=== PATIENT | female | born 1990 | race Caucasian/White ===

== ENCOUNTER 2017-08-29 10:00 | Emergency (ER) | payer OTHER ==
[~2017-08-29] VITALS: Ht 170.2 cm; Wt 116.0 kg
[~2017-08-29 10:00] MED LIST: BENZ100 PO; Z.0.NO CURRENT MEDS; ZITH250T PO
[2017-08-29 10:03] VITALS: BP 146/91; PULSE 100; RESP 20; TEMP 98.2; O2SAT 96
[2017-08-29] MEDS ORDERED: ZITHTAB PO (10:50)
[2017-08-29] MEDS ORDERED: CHERSYP2 PO (10:50)
--- NOTE | 2017-08-29 10:50 | PD ---
HPI Chief Complaint: Cold / Flu Symptoms Time Seen by Provider: 10:47 Travel History International Travel<30 days: No Contact w/Intl Traveler<30days: No Traveled to known affect area: No History of Present Illness HPI Patient presents with complaints of cough and sinus congestion and sore throat. Subjective fever. Symptom onset 3 days ago. Denies any nausea vomiting or diarrhea. No new rashes. Denies . No tobacco exposure. PFSH Past Medical History Medical History: Denies Significant Hx Diminished Hearing: No Influenza Vaccination: Yes ?: Not LMP: 2 WEEKS AGO Past Surgical History Surgical History: No Previous Surgery Social History Alcohol Use: Yes (occas) Tobacco Use: No Substance Use: No Allergies-Medications (Allergen,Severity, Reaction): Coded Allergies: penicillin G (Unverified Allergy, Severe, RASH, 08/29/17) Reported Meds & Prescriptions Reported Meds & Active Scripts Active No Active Prescriptions or Reported Medications Physical Exam Narrative GENERAL: Well-nourished, well-developed patient. SKIN: Focused skin assessment warm/dry. Right TM normal, left TM mildly erythematous mild bulging Nares erythematous and boggy Throat with adenopathy no exudate HEAD: Normocephalic. EYES: No scleral icterus. No injection or drainage. NECK: Supple, trachea midline. No JVD or lymphadenopathy. CARDIOVASCULAR: Regular rate and rhythm without murmurs, gallops, or rubs. RESPIRATORY: Breath sounds equal bilaterally. No accessory muscle use. GASTROINTESTINAL: Abdomen soft, non-tender, nondistended. MUSCULOSKELETAL: No cyanosis, or edema. BACK: Nontender without obvious deformity. No CVA tenderness. Data Data Last Documented VS Vital Signs Date Time Temp Pulse Resp B/P (MAP) Pulse Ox O2 Delivery O2 Flow Rate FiO2 08/29/17 10:03 98.2 100 20 146/91 (109) 96 MDM Medical Decision Making Medical Screen Exam Complete: Yes Emergency Medical Condition: Yes Differential Diagnosis Sinusitis, pharyngitis, otitis media Narrative Course Assessment and plan discussed with patient at bedside Diagnosis Primary Impression: Pharyngitis Qualified Codes: J02.9 - Acute pharyngitis, unspecified Additional Instructions: Rest fluids and Motrin, consider vitamin C and zinc to boost immune system, encouraged salt water gargles, consider nasal irrigation. Follow-up with PCP. Return to the emergency room with onset of new symptoms. Scripts Azithromycin (Zithromax Z-Jose) 250 Mg Dspk 250 MG PO DIRECTED for Infection, #1 DSPK 0 Refills 500 MG (2 tabs) day 1, then 1 tab days 2-5. Prov: Danielito Bradford MD 08/29/17 Guaifenesin-Codeine Liq (Cheratussin AC Liq) 100-10 Mg/5 Ml Syrp 5-10 ML PO Q4H Y for COUGH AND COLD SYMPTOMS, #120 ML 0 Refills Do not exceed 6 doses/24 hrs. Prov: Danielito Bradford MD 08/29/17 Disposition: 01 DISCHARGE HOME Condition: Good Danielito Bradford MD Aug 29, 2017 10:50
== END 2017-08-29 11:00 | disposition home or self-care (01) ==
LOC: PHED 10:00
DX: J02.9 Acute pharyngitis, unspecified (principal)
CPT/HCPCS: 99284

== ENCOUNTER 2018-02-02 16:09 | Emergency (ER) | payer OTHER ==
[~2018-02-02] VITALS: Ht 170.2 cm; Wt 118.0 kg
[~2018-02-02 16:09] MED LIST changes: -BENZ100 PO; +CHERSYP2 PO; -Z.0.NO CURRENT MEDS; -ZITH250T PO; +ZITHTAB PO
[2018-02-02 16:18] VITALS: BP 138/81; PULSE 112; RESP 16; TEMP 99.7; O2SAT 97
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
[2018-02-02] MEDS ORDERED: AZIT250T3 PO (18:23)
[2018-02-02] MEDS ORDERED: ZOFR4TAB3 SL (18:29)
== END 2018-02-02 18:53 | disposition home or self-care (01) ==
LOC: PHEFT 16:09
DX: H66.001 Acute suppurative otitis media without spontaneous rupture of ear drum, right ear (principal)
CPT/HCPCS: 87804; 99283